=== PATIENT | male | born 1945 | race Caucasian/White ===

== ENCOUNTER 2024-11-07 09:33 | Emergency (ER) | payer MEDICARE, BC ==
[2024-11-07 10:33] LABS: BASOPHILS PERCENT AUTO 0.3 % (0.0-1.0); EOSINOPHILS PERCENT AUTO 3.1 % (1.0-3.0); LYMPHOCYTES PERCENT AUTO 16.9 % (20.5-50.1); MONOCYTES PERCENT AUTO 9.2 % (2-8); NEUTROPHILS PERCENT AUTO 70.5 % (42.2-75.2); PLATELET COUNT,PLT 170 10^3/uL (150-450); RED BLOOD CELL COUNT 4.86 10^6/uL (4.6-6.2); WHITE BLOOD CELL COUNT,WBC 7.7 10^3/uL (5.0-10.0)
[2024-11-07 10:49] LABS: A/G RATIO 1.0; ALANINE AMINOTRANSFERASE,ALT 25.0 U/L (16-63); ASPARTATE AMNIOTRANSFERASE,AST 17.0 U/L (15-37); BILIRUBIN TOTAL 1.0 mg/dL (0.2-1.0); BLOOD UREA NITROGEN,BUN 11.0 mg/dL (7-18); CARBON DIOXIDE,CO2 27.0 mmol/L (21-32); CHLORIDE,CL 111.0 mmol/L (98-107); CREATININE 1.3 mg/dL (0.70-1.30); EST CRCL DRUG DOSING (CG) 52.93 mL/min; ESTIMATED GFR 56.0 mL/min (>=60); GLUCOSE RANDOM 129.0 mg/dL (70-99); POTASSIUM,K 3.9 mmol/L (3.5-5.1); PROTEIN TOTAL,TP 6.2 g/dL (6.4-8.2); SODIUM,NA 144.0 mmol/L (136-145)
[2024-11-07] MEDS: Dicyclomine 20 MG/2 ML SDV IM ONE (11:55)
[2024-11-07 14:06] VITALS: BP 114/87; PULSE 69
== END 2024-11-07 14:05 | disposition home or self-care (01) ==
LOC: DL.ED 09:33
DX: R19.7 Diarrhea, unspecified (principal)
CPT/HCPCS: 36415; 74018; 80053; 83735; 85025; 87045; 87046; 96372; 99283; 99284; J0500